=== PATIENT | male | born 1940 | race Caucasian/White ===

== ENCOUNTER 2020-04-16 19:14 | Emergency (ER) | payer MEDICARE, OTHER ==
[~2020-04-16] VITALS: Ht 180 cm; Wt 96.0 kg
--- NOTE | 2020-04-16 19:40 | ED GU-Male ---
General Chief Complaint: - Urinary Stated Complaint: INABILITY TO URINATE/LOWER R ABDOMINAL PAIN Source: patient History of Present Illness Date Seen by Provider: Apr 16, 2020 Time Seen by Provider: 19:20 Initial Comments PT ARRIVES VIA POV STATES HE HAD SURGERY AT YESTERDAY TO REMOVE A RIGHT RENAL MASS ( CANCER, PER PT), AND WAS DISMISSED TODAY AT 1600, AND IS DRIVING HOME FROM TO HIS HOME IN [place]. STATES HE HAD THE CATHETER REMOVED JUST BEFORE HE WAS DISMISSED TODAY, WAS ABLE TO VOID ABOUT 150 ML AFTER THE CATHETER WAS REMOVED, THEN STOPPED IN BINGER AND VOIDED WHAT HE ESTIMATES TO BE ABOUT 100 ML URINE AT THAT TIME, BUT HAS NOT BEEN ABLE TO VOID SINCE THEN. C/O MUCH PAIN/PRESSURE OVER HIS BLADDER AND HIS RIGHT KIDNEY. STATES HE GOT HIS RX'S FILLED AT PHARMACY BEFORE HE LEFT, BUT HAS NOT TAKEN ANY YET. STATES HE HAD OXYCODONE BEFORE HE LEFT THE HOSPITAL. STATES HE WAS ALSO GIVEN ANTIBIOTICS WHILE IN HOSPITAL. NO FEVER/SWEATS/CHILLS HAS HAD A COUPLE OF EPISODES OF MILD NAUSEA, BUT NOT NOW, AND NO VOMITING. 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 PCP: DR. ESTRADA IN [place] NO LOCAL UROLOGIST FOR MANY YEARS--USED TO SEE DR. CATALINA RAMIREZ [place] MANY YEARS AGO Allergies and Home Medications Allergies Coded Allergies: No Known Drug Allergies (Unverified , 04/16/20) Patient Home Medication List Home Medication List Reviewed: Yes Review of Systems Review of Systems Constitutional: no symptoms reported Respiratory: no symptoms reported Cardiovascular: no symptoms reported Gastrointestinal: see HPI, abdominal pain Genitourinary: see HPI, flank pain Musculoskeletal: see HPI, back pain Skin: no symptoms reported Psychiatric/Neurological: No Symptoms Reported Endocrine: No Symptoms Reported Hematologic/Lymphatic: No Symptoms Reported Past [id number] Hx Past Med/Social Hx: Reviewed and Corrections made Patient Social History Alcohol Use: Denies Use Recreational Drug Use: No Smoking Status: Never a Smoker Recent Foreign Travel: No Contact w/Someone Who Travel: No Past Medical History Surgeries: Yes Abdominal, Appendectomy, Orthopedic Respiratory: No Cardiac: Yes High Cholesterol, Hypertension Neurological: Yes (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 RBAR Family Medical History PAST SURGICAL HISTORY: -APPENDECTOMY AGE 12 -UMBILICAL HERNIA REPAIR -LOWER BACK SURGERY FOR SPINAL STENOSIS -LEFT RENAL MASS REMOVED 2009 -RIGHT RENAL MASS REMOVED 04/15/[address] BRAR Physical Exam Vital Signs Vital Signs - First Documented 04/16/20 04/16/20 19:29 21:13 Temp 36.5 Pulse 72 Resp 18 B/P (MAP) 139/81 (100) Pulse Ox 95 O2 Delivery Room Air Capillary Refill : Height, Weight, BMI Height: '" Weight: lbs. oz. kg; BMI Method: General Appearance: WD/WN, no apparent distress HEENT: other (HARD OF HEARING) Cardiovascular: regular rate, rhythm, no murmur Respiratory: normal breath sounds, no respiratory distress, no accessory muscle use Gastrointestinal: tenderness (SPURAPUBIC AND DIFFUSE RIGHT SIDED ABDOMINAL AND FLANK TENDERNESS. ABDOMEN IS MILDLY DISTENDED. INCISION SITES ALL APPEAR NORMAL. ) Progress/Results/Core Measures Suspected Sepsis SIRS Temperature: Pulse: Respiratory Rate: Laboratory Tests 04/16/20 19:45: White Blood Count 7.0 Blood Pressure / Mean: Laboratory Tests 04/16/20 19:45: Creatinine 1.61H, Platelet Count 122L, Total Bilirubin 0.8 Results/Orders Lab Results Laboratory Tests Test 04/16/20 19:45 04/16/20 20:00 Range/Units White Blood Count 7.0 4.3-11.0 10^3/uL Red Blood Count 3.83 L 4.30-5.52 10^6/uL Hemoglobin 11.8 L 13.3-17.7 g/dL Hematocrit 36 L 40-54 % Mean Corpuscular Volume 95 80-99 fL Mean Corpuscular Hemoglobin 31 25-34 pg Mean Corpuscular Hemoglobin Concent 33 32-36 g/dL Red Cell Distribution Width 15.7 H 10.0-14.5 % Platelet Count 122 L 130-400 10^3/uL Mean Platelet Volume 11.1 9.0-12.2 fL Immature Granulocyte % (Auto) 1 % Neutrophils (%) (Auto) 86 H 42-75 % Lymphocytes (%) (Auto) 5 L 12-44 % Monocytes (%) (Auto) 6 0-12 % Eosinophils (%) (Auto) 3 0-10 % Basophils (%) (Auto) 0 0-10 % Neutrophils # (Auto) 6.0 1.8-7.8 10^3/uL Lymphocytes # (Auto) 0.3 L 1.0-4.0 10^3/uL Monocytes # (Auto) 0.4 0.0-1.0 10^3/uL Eosinophils # (Auto) 0.2 0.0-0.3 10^3/uL Basophils # (Auto) 0.0 0.0-0.1 10^3/uL Immature Granulocyte # (Auto) 0.1 0.0-0.1 10^3/uL Neutrophils % (Manual) 87 % Lymphocytes % (Manual) 2 % Monocytes % (Manual) 3 % Eosinophils % (Manual) 2 % Basophils % (Manual) 0 % Band Neutrophils 4 % Reactive Lymphocytes 2 % Poikilocytosis SLIGHT Anisocytosis SLIGHT Elliptocytes SLIGHT Sodium Level 135 135-145 MMOL/L Potassium Level 4.1 3.6-5.0 MMOL/L Chloride Level 99 98-107 MMOL/L Carbon Dioxide Level 25 21-32 MMOL/L Anion Gap 11 5-14 MMOL/L Blood Urea Nitrogen 28 H 7-18 MG/DL Creatinine 1.61 H 0.60-1.30 MG/DL Estimat Glomerular Filtration Rate 42 BUN/Creatinine Ratio 17 Glucose Level 134 H 70-105 MG/DL Calcium Level 8.3 L 8.5-10.1 MG/DL Corrected Calcium 8.5 8.5-10.1 MG/DL Total Bilirubin 0.8 0.1-1.0 MG/DL Aspartate Amino Transf (AST/SGOT) 20 5-34 U/L Alanine Aminotransferase (ALT/SGPT) 16 0-55 U/L Alkaline Phosphatase 45 40-136 U/L Total Protein 6.4 6.4-8.2 GM/DL Albumin 3.7 3.2-4.5 GM/DL Urine Color YELLOW Urine Clarity CLEAR Urine pH 6.0 5-9 Urine Specific [place] 1.025 H 1.016-1.022 Urine Protein NEGATIVE NEGATIVE Urine Glucose (UA) NEGATIVE NEGATIVE Urine Ketones NEGATIVE NEGATIVE Urine Nitrite NEGATIVE NEGATIVE Urine Bilirubin NEGATIVE NEGATIVE Urine Urobilinogen 0.2 < = 1.0 MG/DL Urine Leukocyte Esterase NEGATIVE NEGATIVE Urine RBC (Auto) 2+ H NEGATIVE Urine RBC 10-25 H /HPF Urine WBC 0-2 /HPF Urine Squamous Epithelial Cells RARE /HPF Urine Crystals NONE /LPF Urine Bacteria NEGATIVE /HPF Urine Casts PRESENT /LPF Urine Hyaline Casts RARE /LPF Urine Mucus NEGATIVE /LPF Urine Culture Indicated NO My Orders Orders - ROBERTH SEYMOUR DO Catheter(Urinary) Insert & Ass (04/16/20 19:30) Bladder Scan (04/16/20 19:30) Cbc With Automated Diff (04/16/20:) Comprehensive Metabolic Panel (04/16/20:30) Ua Culture If Indicated (04/16/20 19:30) Ct Abd/Pelvis Wo(Kidney Stone) (04/16/20 19:30) Manual Differential (04/16/20 19:45) Ondansetron Oral Dissolve Tab (Zofran (04/16/20 20:59) Ondansetron Oral Dissolve Tab (Zofran (04/16/20 20:59) Ondansetron Oral Dissolve Tab (Zofran (04/16/20 20:59) Vital Signs/I&O 04/16/20 04/16/20 19:29 21:13 Temp 36.5 Pulse 72 72 Resp 18 18 B/P (MAP) 139/81 (100) 117/73 Pulse Ox 95 O2 Delivery Room Air Room Air Capillary Refill : Progress Note : Progress Note BLADDER SCAN 18-20 ML, BUT PT HAS SENSATION OF VERY FULL BLADDER AND URGE TO URINATE BUT CANNOT. BEAR PLACED WITH IMMEDIATE RETURN OF 245 ML OF CLEAR URINE WITH IMPROVEMENT IN SYMPTOMS Diagnostic Imaging Comments CT ABDOMEN/PELVIS--PER RADIOLOGIST REPORT AT 2034 here is bibasilar atelectasis. There is no effusion. The liver, gallbladder and bile ducts are normal. Spleen, pancreas and adrenals are normal. There is a 3 mm nonobstructing calculus in the right kidney. There are changes consistent with recent surgery of the right kidney with small amount of edema and fluid with tiny bubbles of air. No large hematoma is present. There is no hydronephrosis. The left kidney shows several small cysts with no hydronephrosis. No abnormality of either ureter is seen. There is a Bear catheter in a decompressed bladder. There are multiple seed implants in the prostate. Fat planes around the prostate are well-maintained. There is diverticulosis of the colon. No acute diverticulitis is evident. There is mild gaseous distention of the colon which may be related to mild ileus. No obstruction is evident. IMPRESSION: There are changes consistent with recent surgery on the right kidney. No large hematoma is present. There is no hydronephrosis. There is probable mild ileus. Reviewed: Reviewed by Me Departure Impression Primary Impression: Postoperative urinary retention Additional Impression: S/P REMOVAL OF RIGHT RENAL MASS Disposition: 01 HOME, SELF-CARE Condition: Improved Departure-Patient Inst. Referrals: BUBBA ESTRADA MD (PCP) Primary Care Physician MIGUE BRAR MD (Family) Primary Care Physician Patient Instructions: How to Care for Your Bear Catheter, Male, Urinary Retention (DC) Add. Discharge Instructions: LEAVE BEAR CATHETER IN PLACE CONTINUE ALL OTHER POST OP INSTRUCTIONS CALL YOUR SURGEON IN THE MORNING FOR FOLLOW UP CARE REGARDING CATHETER. All discharge instructions reviewed with patient and/or family. Voiced understanding. ROBERTH SEYMOUR DO Apr 16, 2020 19:40
[2020-04-16 19:53] LABS: BASOPHILS % (AUTO) 0 % (0-10); EOSINOPHILS # (AUTO) 0.2 10^3/uL (0.0-0.3); EOSINOPHILS % (AUTO) 3 % (0-10); HEMATOCRIT 36 % (40-54); HEMOGLOBIN 11.8 g/dL (13.3-17.7); LYMPHOCYTES # (AUTO) 0.3 10^3/uL (1.0-4.0); LYMPHOCYTES % (AUTO) 5 % (12-44); MEAN CORPUSCULAR HEMOGLOBIN 31 pg (25-34); MEAN CORPUSCULAR HGB CONC 33 g/dL (32-36); MEAN CORPUSCULAR VOLUME 95 fL (80-99); MEAN PLATELET VOLUME 11.1 fL (9.0-12.2); MONOCYTES # (AUTO) 0.4 10^3/uL (0.0-1.0); MONOCYTES % (AUTO) 6 % (0-12); NEUTROPHILS % (AUTO) 86 % (42-75); PLATELET COUNT 122 10^3/uL (130-400)
[2020-04-16 20:06] LABS: BILIRUBIN,URINE NEGATIVE (NEGATIVE); CLARITY,URINE CLEAR; COLOR,URINE YELLOW; GLUCOSE, URINE (UA) NEGATIVE (NEGATIVE); KETONES,URINE NEGATIVE (NEGATIVE); LEUKOCYTE ESTERASE ,URINE NEGATIVE (NEGATIVE); NITRITE,URINE NEGATIVE (NEGATIVE); PROTEIN,URINE NEGATIVE (NEGATIVE)
--- NOTE | 2020-04-16 20:12 | NUR ---
Pt to CT by cart.
--- NOTE | 2020-04-16 20:16 | NUR ---
Pt back from CT.
[2020-04-16 20:17] LABS: BACTERIA,URINE NEGATIVE /HPF; HYALINE CASTS, URINE RARE /LPF; SQUAMOUS EPITHELIAL CELL,UR RARE /HPF; WBC,URINE 0-2 /HPF
[2020-04-16 20:22] LABS: BAND NEUTROPHILS 4 %; BASOPHILS % (MANUAL) 0 %; EOSINOPHILS % (MANUAL) 2 %; LYMPHOCYTES % (MANUAL) 2 %; MONOCYTES % (MANUAL) 3 %; NEUTROPHILS % (MANUAL) 87 %; REACTIVE LYMPHOCYTES 2 %
[2020-04-16 20:23] LABS: ANISOCYTOSIS SLIGHT; ELLIPT/OVALOCYTES SLIGHT; POIKILOCYTOSIS SLIGHT
[2020-04-16 20:28] LABS: ALBUMIN 3.7 GM/DL (3.2-4.5); BILIRUBIN,TOTAL 0.8 MG/DL (0.1-1.0); CALCIUM 8.3 MG/DL (8.5-10.1); CREATININE SERUM 1.61 MG/DL (0.60-1.30); POTASSIUM 4.1 MMOL/L (3.6-5.0); TOTAL PROTEIN 6.4 GM/DL (6.4-8.2)
--- NOTE | 2020-04-16 20:30 | Diagnostic Imaging Report ---
PROCEDURE: CT urinary tract, rule out kidney stone. TECHNIQUE: Multiple contiguous axial images were obtained through the abdomen and pelvis without the use of intravenous contrast. Auto Exposure Controls were utilized during the CT exam to meet ALARA standards for radiation dose reduction. INDICATION: One-day status post right renal surgery. Flank pain There is bibasilar atelectasis. There is no effusion. The liver, gallbladder and bile ducts are normal. Spleen, pancreas and adrenals are normal. There is a 3 mm nonobstructing calculus in the right kidney. There are changes consistent with recent surgery of the right kidney with small amount of edema and fluid with tiny bubbles of air. No large hematoma is present. There is no hydronephrosis. The left kidney shows several small cysts with no hydronephrosis. No abnormality of either ureter is seen. There is a Gonzalez catheter in a decompressed bladder. There are multiple seed implants in the prostate. Fat planes around the prostate are well-maintained. There is diverticulosis of the colon. No acute diverticulitis is evident. There is mild gaseous distention of the colon which may be related to mild ileus. No obstruction is evident. IMPRESSION: There are changes consistent with recent surgery on the right kidney. No large hematoma is present. There is no hydronephrosis. There is probable mild ileus. Dictated by: Dictated on workstation # [id number]
[2020-04-16] MEDS ORDERED: ONDANSETRON 4 MG (ZOFRAN) ORAL DISSOLVE TAB PO STA ×2 (20:59)
[2020-04-16] MEDS ORDERED: ONDANSETRON 4 MG (ZOFRAN) ORAL DISSOLVE TAB ONE (20:59)
[2020-04-16 21:13] VITALS: BP 117/73
== END 2020-04-16 21:14 | disposition home or self-care (01) ==
LOC: EDUNIT# 19:14 → ER 19:16
DX: N99.89 Other postprocedural complications and disorders of genitourinary system (principal); K57.30 Diverticulosis of large intestine without perforation or abscess without bleeding; I10 Essential (primary) hypertension; Z85.528 Personal history of other malignant neoplasm of kidney; Z85.46 Personal history of malignant neoplasm of prostate; Z98.890 Other specified postprocedural states
CPT/HCPCS: 36415; 51702; 74176; 80053; 81000; 85007; 85027